=== PATIENT | male | born 1965 | race Two or more races ===

== ENCOUNTER 2017-05-18 11:21 | Emergency (ER) | payer MEDICAID, OTHER ==
[~2017-05-18] VITALS: Ht 180.3 cm; Wt 92.0 kg
[2017-05-18 11:22] VITALS: BP 151/90
== END 2017-05-18 12:51 | disposition home or self-care (01) ==
LOC: ED 12:30
DX: J98.01 Acute bronchospasm (principal); H92.03 Otalgia, bilateral
CPT/HCPCS: 71020; 99284